=== PATIENT | female | born 1945 | race Caucasian/White ===

== ENCOUNTER 2023-06-07 09:13 | Outpatient (CLI) | payer MEDICARE, BC ==
[2023-06-07 11:42] LABS: Hematocrit 41.4 % (34.9-44.5); Hemoglobin 14.2 g/dL (12.0-15.5)
[2023-06-07 11:59] LABS: Anion Gap 13 mmol/L (10-20); BUN (Urea Nitrogen) 14 mg/dL (9.8-20.1); Calc. Creatinine Clearance 0 mL/min (70-130); Calcium 9.3 mg/dL (7.8-10.44); Carbon Dioxide 28 mmol/L (23-31); Chloride 101 mmol/L (98-107); Estimated GFR 80; Glucose 81 mg/dL (83-110); Potassium 4.3 mmol/L (3.5-5.1); Sodium 138 mmol/L (136-145)
== END 2023-06-07 09:14 | disposition home or self-care (01) ==
LOC: CSHLAB 09:13
PROVIDERS: ATTEND Otolaryngology Plastic Surgery within the Head & Neck
DX: Z01.818 Encounter for other preprocedural examination (principal); H90.3 Sensorineural hearing loss, bilateral
CPT/HCPCS: 80048; 85014; 85018; 93005; 93010

== ENCOUNTER 2023-06-11 05:48 | Day surgery (SDC) | payer MEDICARE, BC ==
[2023-06-07 09:59] VITALS: BMI 21.6
[2023-06-11] MEDS ORDERED: Dexmedetomidine 200 MCG/2 ML VIAL ONE (06:28)
[2023-06-11] MEDS ORDERED: Sevoflurane 250 ML INH ANEST BOTTLE ONE (06:28)
[2023-06-11] MEDS ORDERED: Rocuronium Bromide 10 MG/ML (10ML VIAL) ONE (06:35)
[2023-06-11] MEDS ORDERED: Ondansetron PF 4 MG/2 ML Vial ONE (06:35)
[2023-06-11] MEDS ORDERED: PROPOFOL 20 ML ONE ×2 (06:35→08:38)
[2023-06-11] MEDS ORDERED: Dexamethasone 20 MG/5 ML VIAL ONE (06:35)
[2023-06-11] MEDS ORDERED: Lidocaine 1% PF 5 ML VIAL ONE (06:35)
[2023-06-11] MEDS ORDERED: PHENYLEPHRINE-NS 100 MCG/ML 10 ML SYRINGE ONE (06:36)
[2023-06-11] MEDS ORDERED: Midazolam HCl 2 mg/2 ml Vial ONE (06:36)
[2023-06-11] MEDS ORDERED: Fentanyl 250 MCG/5 ML VIAL ONE (06:36)
[2023-06-11] MEDS ORDERED: EPINEPHrine 1 MG/ML VIAL ONE (06:43)
[2023-06-11] MEDS ORDERED: Mupirocin 2% Ointment 22 GM Tube ONE (06:43)
[2023-06-11] MEDS ORDERED: Lidocaine 1% w/Epinephrine 1:100K 20 ML VIAL ONE (06:44)
[2023-06-11] MEDS ORDERED: CEFAZOLIN 2 GM VIAL ONE (07:16)
[2023-06-11] MEDS ORDERED: Glycopyrrolate 0.2 MG/ML 5 ML SYRINGE ONE (07:54)
[2023-06-11] MEDS ORDERED: ePHEDrine Sulfate 50 MG/10 ML VIAL ONE (07:55)
== END 2023-06-11 11:35 | disposition home or self-care (01) ==
LOC: CSHSDC 05:48
PROVIDERS: ATTEND Otolaryngology Plastic Surgery within the Head & Neck
PROC: F0BZ09Z Cochlear Implant Rehabilitation Treatment using Cochlear Implant Equipment (ICD-10-PCS; principal; 2023-06-11)
DX: H90.3 Sensorineural hearing loss, bilateral (principal); J32.9 Chronic sinusitis, unspecified; F41.9 Anxiety disorder, unspecified; E03.9 Hypothyroidism, unspecified; F10.90 Alcohol use, unspecified, uncomplicated; Z87.891 Personal history of nicotine dependence; Z88.8 Allergy status to other drugs, medicaments and biological substances; Z90.710 Acquired absence of both cervix and uterus; Z79.890 Hormone replacement therapy; Z79.899 Other long term (current) drug therapy
CPT/HCPCS: 69930; 70250; J0171; L8614 ×2; Q9968; J1100; J2250; J2405; J2704; J3010